=== PATIENT | female | born 1995 | race Caucasian/White ===

== ENCOUNTER 2018-04-14 12:29 | Emergency (ER) | payer SELFPAY ==
[~2018-04-14] VITALS: Ht 167.6 cm; Wt 89.3 kg
[2018-04-14 12:36] VITALS: Ht 167.6 cm; Wt 89.3 kg
[2018-04-14 14:02] VITALS: BP 110/77
== END 2018-04-14 14:05 | disposition home or self-care (01) ==
LOC: ED 12:29
DX: J06.9 Acute upper respiratory infection, unspecified (principal)

== ENCOUNTER 2018-11-13 18:02 | Emergency (ER) | payer OTHER ==
[~2018-11-13] VITALS: Ht 167.6 cm; Wt 90.3 kg
[2018-11-13 18:05] VITALS: Ht 167.6 cm; Wt 90.3 kg
[2018-11-13 18:56] LABS: BASOPHIL % 0.9 % (0-2); PLATELET COUNT 268 x10^3mcL (130-400); RED CELL DISTRIBUTION WIDTH 12.7 % (11.5-14.5)
[2018-11-13 19:02] LABS: CALCIUM 8.6 mg/dL (8.5-10.1); CARBON DIOXIDE 24.2 mmol/L (21-32); CHLORIDE SERUM 104 mmol/L (98-107); GFR1 > 60 mL/min; GLUCOSE SERUM 100 mg/dL (74-106); POTASSIUM SERUM 3.6 mmol/L (3.5-5.1); SODIUM SERUM 141 mmol/L (136-145)
[2018-11-13 19:06] LABS: ALBUMIN 4.1 g/dL (3.4-5.0); ALKALINE PHOSPHATASE 68 U/L (46-116); ALT/SGPT 23 U/L (14-59); AST/SGOT 22 U/L (15-37); BILIRUBIN TOTAL 0.4 mg/dL (0.20-1.00)
[2018-11-13 19:57] VITALS: BP 158/62
== END 2018-11-13 19:57 | disposition home or self-care (01) ==
LOC: ED 18:02
PROVIDERS: Emergency Medicine
DX: E86.0 Dehydration (principal); R11.2 Nausea with vomiting, unspecified; F17.210 Nicotine dependence, cigarettes, uncomplicated
CPT/HCPCS: J2405; J7030

== ENCOUNTER 2019-11-06 06:02 | Emergency (ER) | payer OTHER ==
[~2019-11-06] VITALS: Ht 167.6 cm; Wt 95.8 kg
[2019-11-06 06:07] VITALS: Ht 167.6 cm; Wt 95.8 kg
[2019-11-06 07:45] VITALS: BP 141/80
== END 2019-11-06 07:45 | disposition home or self-care (01) ==
LOC: ED 06:02
DX: T22.011A Burn of unspecified degree of right forearm, initial encounter (principal); X08.8XXA Exposure to other specified smoke, fire and flames, initial encounter; Y93.89 Activity, other specified; Y92.89 Other specified places as the place of occurrence of the external cause; Y99.0 Civilian activity done for income or pay

== ENCOUNTER 2020-02-04 07:04 | Inpatient (IN) | payer OTHER ==
[~2020-02-04] VITALS: Ht 167.6 cm; Wt 94.3 kg
[2020-02-04 07:10] VITALS: Ht 167.6 cm; Wt 94.3 kg
[2020-02-04 07:52] LABS: PLATELET COUNT 293 x10^3mcL (130-400); RED CELL DISTRIBUTION WIDTH 12.3 % (11.5-14.5)
[2020-02-04 07:56] LABS: CALCIUM 8.8 mg/dL (8.5-10.1); CARBON DIOXIDE 28.6 mmol/L (21-32); CHLORIDE SERUM 104 mmol/L (98-107); CREATININE SERUM 0.6 mg/dL (0.6-1.0); GFR1 > 60 mL/min; GLUCOSE SERUM 106 mg/dL (74-106); POTASSIUM SERUM 3.7 mmol/L (3.5-5.1); SODIUM SERUM 140 mmol/L (136-145)
[2020-02-04 07:58] LABS: BASOPHIL % 0 % (0-2)
[2020-02-04 08:00] LABS: ALBUMIN 3.7 g/dL (3.4-5.0); ALKALINE PHOSPHATASE 74 U/L (46-116); ALT/SGPT 22 U/L (14-59); AST/SGOT 12 U/L (15-37); BILIRUBIN TOTAL 0.57 mg/dL (0.20-1.00); TOTAL PROTEIN, SERUM 7.3 g/dL (6.4-8.2)
[2020-02-04 13:26] VITALS: BP 122/75
[2020-02-04 17:45] VITALS: BP 136/86
[2020-02-04 20:57] VITALS: BP 117/79
[2020-02-05 05:15] VITALS: BP 94/50
[2020-02-05 06:26] LABS: PLATELET COUNT 287 x10^3mcL (130-400); RED CELL DISTRIBUTION WIDTH 12.6 % (11.5-14.5)
[2020-02-05 06:51] LABS: BASOPHIL % 0 % (0-2)
[2020-02-05 07:04] LABS: CALCIUM 8.2 mg/dL (8.5-10.1); CARBON DIOXIDE 25.6 mmol/L (21-32); CHLORIDE SERUM 104 mmol/L (98-107); CREATININE SERUM 0.6 mg/dL (0.6-1.0); GFR1 > 60 mL/min; GLUCOSE SERUM 107 mg/dL (74-106); POTASSIUM SERUM 3.8 mmol/L (3.5-5.1); SODIUM SERUM 140 mmol/L (136-145)
[2020-02-05 10:07] VITALS: BP 111/74
[2020-02-05 12:22] VITALS: BP 122/80
[2020-02-05] MEDS ORDERED: ACETAMINOPHEN-H1 TA1 PO (12:41)
[2020-02-05 12:50] VITALS: BP 122/80
== END 2020-02-05 13:48 | disposition home or self-care (01) | DRG 234 ==
LOC: ED 07:04 → MU 10:59
PROVIDERS: Emergency Medicine; Surgery; ADMIT Hospitalist
PROC: 0DTJ4ZZ Resection of Appendix, Percutaneous Endoscopic Approach (ICD-10-PCS; principal; 2020-02-04 14:00)
DX: K35.80 Unspecified acute appendicitis (principal); D72.829 Elevated white blood cell count, unspecified; F12.90 Cannabis use, unspecified, uncomplicated; E28.2 Polycystic ovarian syndrome; E66.9 Obesity, unspecified; Z68.34 Body mass index [BMI] 34.0-34.9, adult
CPT/HCPCS: 94150; G0378; J1644; J2175; J2250; J2405; J2543; J3010; J3490; J7030